=== PATIENT | female | born 1955 | race Caucasian/White ===

== ENCOUNTER → 2017-03-02 | Outpatient (CLI) | payer OTHER | LOC: FIMAGING 15:30 | PROVIDERS: ATTEND Otolaryngology | DX: R05 Cough (principal) ==

== ENCOUNTER → 2017-06-08 | Outpatient (CLI) | payer OTHER | LOC: FIMAGING 11:23 | PROVIDERS: ATTEND Family Medicine | DX: Z12.31 Encounter for screening mammogram for malignant neoplasm of breast (principal) | CPT/HCPCS: G0202 ==

== ENCOUNTER → 2017-07-26 | Outpatient (CLI) | payer OTHER | PROVIDERS: ATTEND Internal Medicine Pulmonary Disease | DX: R13.10 Dysphagia, unspecified (principal); J42 Unspecified chronic bronchitis | CPT/HCPCS: 92611-GN ==

== ENCOUNTER → 2018-07-05 | Outpatient (CLI) | payer OTHER | DX: Z12.31 Encounter for screening mammogram for malignant neoplasm of breast (principal) ==